=== PATIENT | female | born 1970 | race Caucasian/White ===

== ENCOUNTER 2017-12-08 16:04 | Emergency (ER) | payer OTHER ==
[~2017-12-08] VITALS: Ht 172.7 cm; Wt 77.1 kg
[~2017-12-08 16:04] MED LIST: MECLIZINE HCL25 M1 PO; ULTRAM 50MG TAB50 MG PO; WELLBUTRIN 100100 M1 PO; ZPAK PO
[2017-12-08] MEDS ORDERED: IBUPROFEN 400400 M2 PO (16:23)
[2017-12-08] MEDS ORDERED: IBUPROFEN 600600 M1 PO (17:09)
[2017-12-08 17:16] VITALS: BP 132/82
== END 2017-12-08 17:17 | disposition home or self-care (01) ==
LOC: M.ERS 16:04
DX: S92.812A Other fracture of left foot, initial encounter for closed fracture (principal); F32.9 Major depressive disorder, single episode, unspecified; F17.210 Nicotine dependence, cigarettes, uncomplicated; W22.8XXA Striking against or struck by other objects, initial encounter; Y93.89 Activity, other specified; Y92.89 Other specified places as the place of occurrence of the external cause; Y99.8 Other external cause status